=== PATIENT | female | born 1980 | race Caucasian/White ===

== ENCOUNTER 2019-05-24 09:38 | Outpatient (RCR) | payer SELFPAY | END 2019-06-06 00:01 | LOC: MPT 09:38 | PROVIDERS: Family Provider Family Medicine; Visit Provider Family Medicine | DX: M25.512 Pain in left shoulder (principal) | CPT/HCPCS: 97110 ×2; 97161; G0283 ==

== ENCOUNTER 2019-06-07 06:00 | Outpatient (RCR) | payer OTHER, SELFPAY | END 2019-07-07 23:59 | disposition home or self-care (01) | LOC: MPT 06:00 | PROVIDERS: Family Provider Family Medicine; PCP Family Medicine; Visit Provider Family Medicine | DX: M25.512 Pain in left shoulder (principal) | CPT/HCPCS: 97032; 97110; 97140 ==

== ENCOUNTER 2019-07-08 06:00 | Outpatient (RCR) | payer OTHER, SELFPAY | END 2019-08-05 23:59 | disposition home or self-care (01) | LOC: MPT 06:00 | PROVIDERS: Family Provider Family Medicine; PCP Family Medicine; Visit Provider Family Medicine | DX: M75.22 Bicipital tendinitis, left shoulder (principal); M54.2 Cervicalgia; M25.512 Pain in left shoulder; Z68.35 Body mass index [BMI] 35.0-35.9, adult | CPT/HCPCS: 97110; 97140 ==

== ENCOUNTER 2019-07-18 16:12 | Emergency (ER) | payer OTHER, SELFPAY ==
--- NOTE | 2019-07-18 16:38 | ECG_ITS ---
Measurements Intervals [place] Rate: 81 P: 51 ID: [id number] QRS: 75 QRSD: 85 T: 55 QT: 389 QTc: 452 SINUS RHYTHM Compared to ECG 04/11/2015 10:30:43 Sinus tachycardia no longer present Electronically Signed On 07-18-2019 20:01:37 [employer] by Renee Paul M.D. [email or web address]
[2019-07-18 16:49] VITALS: BP 108/72; PULSE 76; RESP 16; TEMP 36.6; O2SAT 100; BMI 36.8
--- NOTE | 2019-07-18 17:01 | ED_ITS ---
Entered by Javid Prater LPN, acting as scribe for Yoni Bhagat DO Jul 18, 2019 16:12 HPI - Chest Pain General: Chief Complaint: Chest Pain Stated Complaint: chest pain PFSH ED PFSH: Statuses (acute, chronic, etc) shown below reflect problem list status as previously entered and may not be historically accurate Social History Smoking and tobacco status: never smoked Female Reproductive History: Date of last menstrual period: 06/27/19 Course Vital Signs: Vital signs: Vital Signs Temperature 97.9 F 07/18/19 16:49 Pulse Rate 76 07/18/19 16:49 Respiratory Rate 16 07/18/19 16:49 Blood Pressure 108/72 07/18/19 16:49 Pulse Oximetry 100 07/18/19 16:49 Discharge Plan Discharge Prescriptions: No Action aripiprazole [Abilify] 2 mg tablet 2 mg PO QDAY Qty: 90 RF: 0 simvastatin 20 mg tablet 20 mg PO DAILY Qty: 30 RF: 0 escitalopram oxalate 20 mg tablet 20 mg PO DAILY Qty: 30 RF: 0 Coding Level of Care Code 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
--- NOTE | 2019-07-18 17:11 | ED_ITS ---
Entered by Trudy Nicholson, acting as scribe for Isa Cool MD Jul 18, 2019 16:12 HPI - Chest Pain General: Chief Complaint: Chest Pain Stated Complaint: chest pain Time Seen by Provider: 07/18/19 17:11 Source: patient and RN notes reviewed Mode of arrival: ambulatory Limitations: no limitations History of Present Illness: HPI narrative: 38 yo female presents to ED with complaints of chest pain. Pain is sharp at times comes and goes on its own nothing makes it better or worse. It is left-sided radiates to her neck.'s associated with shortness of breath occasionally. She is accompanied by her mother who also gives history. She states she has craved sweets and has been more fatigued since this pain started. She is seen by cardiology for SVT once a year and takes her metoprolol regularly. She is currently pain-free. She states that she has had pain lasting longer than 30 minutes that started at 2 PM today. Denies any cold or flu symptoms. MD complaint: chest pain Associated symptoms: Deny abdominal pain, dyspnea, fever(s), nausea or vomiting Review of Systems General: Reports: 10 or more systems reviewed and unremarkable except in HPI and below Const: Reports: change in weight and fatigue; Denies: fever or chills Eyes: Denies: change in vision ENMT: Denies: throat pain Card: Reports: chest pain Resp: Denies: shortness of breath GI: Denies: abdominal pain, nausea, vomiting or change in bowel habits : Denies: difficulty urinating Musc: Denies: muscle weakness Skin/Breast: Denies: rash Neuro: Denies: headache Psych: Denies: hopelessness or suicidal ideation Endo: Denies: excessive urination David/Lymph: Denies: easy bruising or easy bleeding All/Imm: Denies: hives PFSH ED PFSH: Statuses (acute, chronic, etc) shown below reflect problem list status as previously entered and may not be historically accurate Social History Smoking and tobacco status: never smoked Female Reproductive History: Date of last menstrual period: 06/27/19 Physical Exam Const: COMMON NORMALS: no apparent distress, average body habitus, oriented x3, no limitations, healthy appearing, alert and well nourished HENMT: COMMON NORMALS: normocephalic, external ears normal and external nose normal HEAD & SCALP: normocephalic NOSE: external nose normal EXTERNAL EAR: Yes external ears normal MOUTH: oral and palatal mucosa normal THROAT: posterior oropharynx normal Eye: COMMON NORMALS: PERRL, EOMs intact bilaterally, conjunctivae normal, no scleral icterus and normal visual lion by confrontation CONJUNCTIVA: Yes conjunctivae normal PUPIL: Yes PERRL Neck/C-Spine: COMMON NORMALS: full ROM, no lymphadenopathy, supple, no meningeal signs and no JVD CERVICAL SPINE: Yes cervical ROM normal Lymph: LYMPHATIC: no lymphadenopathy noted Chest: COMMONS NORMALS: inspection of chest normal Resp: COMMON NORMALS: normal respiratory effort, no retractions, no use of accessory muscles and clear to auscultation bilaterally AUSCULTATION: clear to auscultation bilaterally Cardio: COMMON NORMALS: no JVD, regular rate, regular rhythm, no gallops, no clicks, no murmurs and no rub RATE: regular rate RHYTHM: regular rhythm GI: COMMON NORMALS: normal to inspection, nondistended, normoactive bowel sounds, soft to palpation and non-tender AUSCULTATION: Yes normoactive bowel sounds PALPATION: Yes soft : COMMON NORMALS: Yes no CVA tenderness BLADDER/KIDNEY EXAM: Yes no CVA tenderness Back/Pelvis: COMMON NORMALS: no CVA tenderness Extremity: COMMON NORMALS: normal to inspection Neuro: COMMON NORMALS: oriented x3 SENSORIUM/ORIENTATION: Yes alert MENINGEAL SIGNS: Yes no meningeal signs SPEECH: speech normal Psych: COMMON NORMALS: mental status grossly normal, thought process normal, cooperative, affect normal, speech normal, activity/motor behavior normal, denies hallucinations, denies homicidal ideation and denies suicidal ideation SPEECH: Yes normal speech THOUGHT PROCESS: normal thought process Skin: COMMON NORMALS: no rashes or lesions noted GENERAL SKIN EXAM: no rashes or lesions noted Course Vital Signs: Vital signs: Vital Signs Temperature 97.9 F 07/18/19 16:49 Pulse Rate 76 07/18/19 16:49 Respiratory Rate 16 07/18/19 16:49 Blood Pressure 108/72 07/18/19 16:49 Pulse Oximetry 100 07/18/19 17:36 MDM - Chest Pain MDM Narrative: Medical decision making narrative: Troponin within normal limits. Patient's pain was described as sharp and with d-dimer being just outside the normal limits decision to do CTA was made. Incidental finding on CT information will be given to the patient to follow-up for repeat CT presumably in several months. Lab Data: Labs: Lab Results 07/18/19 07/18/19 07/18/19 Range/Units 17:30 17:30 17:30 WBC 7.9 (4.0-10.0) 10^3/ uL RBC 4.51 (4.1-5.3) 10^6/u L Hgb 12.1 (11.5-15.3) g/dL Hct 38.7 (37.0-47.0) % MCV 85.8 (81-99) fL MCH 26.8 L (28.0-34.0) pg MCHC 31.3 (30.0-36.0) g/dL RDW 13.0 (12.1-15.1) % Plt Count 235 (130-400) 10^3/c mm MPV 10.1 (7.4-10.4) fL Neut % (Auto) 51.2 % Lymph % (Auto) 37.6 % [place] % (Auto) 6.4 % Eos % (Auto) 3.8 % Baso % (Auto) 0.6 % Neut # (Auto) 4.1 (1.8-7.7) 10^3/u L Lymph # (Auto) 3.0 (0.8-4.8) 10^3/u L [place] # (Auto) 0.5 (0.2-0.9) 10^3/u L Eos # (Auto) 0.3 (0.0-0.8) 10^3/u L Baso # (Auto) 0.1 (0.0-0.1) 10^3/u L Nucleated RBC % (a uto) 0 % Nucleated RBCs # 0.0 /100WBC D-Dimer (0-0.59) ug/mIFE U Sodium 140 (136-145) mmol/L Potassium 3.9 (3.5-5.1) mmol/L Chloride 105 (98-107) mmol/L Carbon Dioxide 23 (22-29) mmol/L Anion Gap 15.9 (5-19) BUN 21 H (6-20) mg/dL Creatinine 1.1 H (0.5-0.9) mg/dL GFR Calculation 55.0 L (90-130) mL/min Glucose 101 (65-115) mg/dL Calcium 9.2 (8.5-10.5) mg/dL Total Bilirubin 0.2 (0.15-1.2) mg/dL AST 73 H (0-32) U/L ALT 194 H (0-33) U/L Alkaline Phosphata se 62 (35-105) IU/L Troponin T Baselin e 7 (0-10) ng/mL Troponin T 120 Min [place]ering (0-10) ng/mL Delta Troponin T (0-10) ABS# Total Protein 7.5 (6.6-8.7) g/dL Albumin 4.3 (3.5-5.2) g/dL Globulin 3.2 (1.3-4.6) g/dL TSH 1.49 (0.27-4.20) uIU/ mL 07/18/19 07/18/19 Range/Units 17:30 18:52 WBC (4.0-10.0) 10^3/ uL RBC (4.1-5.3) 10^6/u L Hgb (11.5-15.3) g/dL Hct (37.0-47.0) % MCV (81-99) fL MCH (28.0-34.0) pg MCHC (30.0-36.0) g/dL RDW (12.1-15.1) % Plt Count (130-400) 10^3/c mm MPV (7.4-10.4) fL Neut % (Auto) % Lymph % (Auto) % [place] % (Auto) % Eos % (Auto) % Baso % (Auto) % Neut # (Auto) (1.8-7.7) 10^3/u L Lymph # (Auto) (0.8-4.8) 10^3/u L [place] # (Auto) (0.2-0.9) 10^3/u L Eos # (Auto) (0.0-0.8) 10^3/u L Baso # (Auto) (0.0-0.1) 10^3/u L Nucleated RBC % (a uto) % Nucleated RBCs # /100WBC D-Dimer 0.63 H (0-0.59) ug/mIFE U Sodium (136-145) mmol/L Potassium (3.5-5.1) mmol/L Chloride (98-107) mmol/L Carbon Dioxide (22-29) mmol/L Anion Gap (5-19) BUN (6-20) mg/dL Creatinine (0.5-0.9) mg/dL GFR Calculation (90-130) mL/min Glucose (65-115) mg/dL Calcium (8.5-10.5) mg/dL Total Bilirubin (0.15-1.2) mg/dL AST (0-32) U/L ALT (0-33) U/L Alkaline Phosphata se (35-105) IU/L Troponin T Baselin e (0-10) ng/mL Troponin T 120 Min [place] 6.84 (0-10) ng/mL Delta Troponin T -0.16 L (0-10) ABS# Total Protein (6.6-8.7) g/dL Albumin (3.5-5.2) g/dL Globulin (1.3-4.6) g/dL TSH (0.27-4.20) uIU/ mL Imaging Data^: CXR: Attestation: I personally reviewed and interpreted this imaging study as follows: My impression: Normal chest CTA Chest: Radiologist's impression: [place] [address] CT Scan Report Signed Patient: Suraj Granados #: [id number] : 1980Acct#:[id number] Age/Sex: 38 / FADM Date: 07/18/19 Loc: ERRoom/Bed: Attending Dr: Ordering Provider/Ordering MD: Isa Cool MD Date of Service: 07/18/19 Procedure(s): CT angio chest PE protcl [id number] Accession Number(s): [id number] Report Number: [id number] PROCEDURE INFORMATION: Exam: CT Angiography Chest With Contrast Exam date and time: 07/18/2019 6:30 PM Age: 38 years old Clinical indication: Chest pain and sternal or substernal pain; Left-sided chest pain; Patient HX: C/O L sided and substernal pain - elev d-dimer and HX of svt; Additional info: Sharp cp TECHNIQUE: Imaging protocol: Computed tomographic angiography of the chest with intravenous contrast. 3D rendering: MIP and/or 3D reconstructed images were created by the technologist. Total DLP: 551.84 mGy-cm Radiation optimization: All CT scans at this facility use at least one of these dose optimization techniques: automated exposure control; mA and/or kV adjustment per patient size (includes targeted exams where dose is matched to clinical indication); or iterative reconstruction. Contrast material: OMNI 350; Contrast volume: 95 ml; Contrast route: 18G; COMPARISON: CR XR chest 1V portable [id number] 07/18/2019 5:40 PM FINDINGS: Pulmonary arteries: Normal. No pulmonary emboli. Aorta: Unremarkable. No aortic aneurysm. No aortic dissection. Lungs: Minimal dependent atelectasis. The lungs are otherwise clear. Pleural space: Unremarkable. No pneumothorax. No pleural effusion. Heart: 2.9 cm oval fluid density cyst or pericardial fluid collection in the AP window region. Lymph nodes: 1.4 cm pretracheal lymph node. Bones/joints: Unremarkable. No acute fracture. Soft tissues: Unremarkable. CT/CT angio chest PE protcl [id number] IMPRESSION: 1. No pulmonary embolus. 2. 2.9 cm fluid density cystic structure in the AP window. This could represent a bronchogenic cyst or loculated pericardial fluid. CT follow-up to confirm stability recommended. 3. 1.4 cm pretracheal lymph node is most likely reactive. Radiation Dose CTDIVOL = (mGy): DLP = 551.84 (mGy-cm) Dictated By:Rudi Rebollar Signed By:Rudi RebollarSiarmando Date/Time:07/18/191918 DD/ EKG Data^: EKG 1: Attestation: I personally reviewed and interpreted this EKG as follows: EKG interpretation date: 07/18/19 EKG interpretation time: 17:23 Prior EKG tracings: available for review Interpretation: Sinus rhythm rate [address] elevation normal NC interval. Discharge Plan Discharge Patient Disposition: Home, Self-Care Clinical Impression: Chest pain Qualifiers: Chest pain type: unspecified Qualified Code(s): R07.9 - Chest pain, unspecified Condition: Stable Prescriptions: No Action simvastatin 20 mg tablet 20 mg PO DAILY Qty: 30 RF: 0 escitalopram oxalate 20 mg tablet 20 mg PO DAILY Qty: 30 RF: 0 cranberry 400 mg Capsule 400 mg PO DAILY RF: 0 Topamax 100 mg Tablet 150 mg PO BID RF: 0 B Complex 100 0.4 mg Tablet 1 tab PO DAILY RF: 0 Fish Oil 1,000 mg (120 mg-180 mg) Capsule 1 cap PO DAILY RF: 0 Vitamin D3 4,000 unit Capsule 5,000 unit PO DAILY RF: 0 metoprolol succinate 25 mg Capsule,Sprinkle,Er 24hr 12.5 mg PO BID RF: 0 Abilify 2 mg tablet 2 mg PO DAILY RF: 0 Referrals: Kristen Muir DO [Primary Care Provider] - 1-3 days Patient Instructions: Chest Pain (ED) Activity Restrictions/Additional Instructions: There is no evidence of a life-threatening condition from your visit today. Cardiac enzyme was normal. CTA of chest did not reveal a pulmonary embolus but there was incidental finding which simply means you need to follow-up with your primary care doctor and have a repeat CT scan. CT/CT angio chest PE protcl [id number] IMPRESSION: 1. No pulmonary embolus. 2. 2.9 cm fluid density cystic structure in the AP window. This could represent a bronchogenic cyst or loculated pericardial fluid. CT follow-up to confirm stability recommended. 3. 1.4 cm pretracheal lymph node is most likely reactive. 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
--- NOTE | 2019-07-18 17:12 | XRR_ITS ---
PROCEDURE INFORMATION: Exam: XR Chest, 1 View Exam date and time: 07/18/2019 5:49 PM Age: 38 years old Clinical indication: Chest pain; Type not specified; Additional info: Cp TECHNIQUE: Imaging protocol: XR of the chest Views: 1 view. COMPARISON: CR Chest 1 [place] [id number] 04/11/2015 10:42 AM FINDINGS: Lungs: Unremarkable. No consolidation. Pleural space: Unremarkable. No pleural effusion. No pneumothorax. Heart/Mediastinum: Unremarkable. No cardiomegaly. Bones/joints: Unremarkable. XR/XR chest 1V portable [id number] IMPRESSION: No acute findings.
[2019-07-18 17:36] VITALS: O2SAT 100
[2019-07-18 17:58] LABS: Basophils # 0.1 10^3/uL (0.0-0.1); Basophils % 0.6 %; Eosinophils # 0.3 10^3/uL (0.0-0.8); Eosinophils % 3.8 %; Hematocrit 38.7 % (37.0-47.0); Hemoglobin 12.1 g/dL (11.5-15.3); Lymphocytes % 37.6 %; Mean Corpuscular HGB Conc 31.3 g/dL (30.0-36.0); Mean Corpuscular Hemoglobin 26.8 pg (28.0-34.0); Mean Corpuscular Volume 85.8 fL (81-99); Mean Platelet Volume 10.1 fL (7.4-10.4); Monocytes # 0.5 10^3/uL (0.2-0.9); Monocytes % 6.4 %; Neutrophils # 4.1 10^3/uL (1.8-7.7); Neutrophils % 51.2 %; Nucleated Red Blood Cells % 0 %; Platelet Count 235 10^3/cmm (130-400); Red Blood Count 4.51 10^6/uL (4.1-5.3); White Blood Count 7.9 10^3/uL (4.0-10.0)
[2019-07-18 18:04] LABS: D Dimer 0.63 ug/mIFEU (0-0.59)
--- NOTE | 2019-07-18 18:13 | CTR_ITS ---
PROCEDURE INFORMATION: Exam: CT Angiography Chest With Contrast Exam date and time: 07/18/2019 6:30 PM Age: 38 years old Clinical indication: Chest pain and sternal or substernal pain; Left-sided chest pain; Patient HX: C/O L sided and substernal pain - elev d-dimer and HX of svt; Additional info: Sharp cp TECHNIQUE: Imaging protocol: Computed tomographic angiography of the chest with intravenous contrast. 3D rendering: MIP and/or 3D reconstructed images were created by the technologist. Total DLP: 551.84 mGy-cm Radiation optimization: All CT scans at this facility use at least one of these dose optimization techniques: automated exposure control; mA and/or kV adjustment per patient size (includes targeted exams where dose is matched to clinical indication); or iterative reconstruction. Contrast material: OMNI 350; Contrast volume: 95 ml; Contrast route: 18G; COMPARISON: CR XR chest 1V portable [id number] 07/18/2019 5:40 PM FINDINGS: Pulmonary arteries: Normal. No pulmonary emboli. Aorta: Unremarkable. No aortic aneurysm. No aortic dissection. Lungs: Minimal dependent atelectasis. The lungs are otherwise clear. Pleural space: Unremarkable. No pneumothorax. No pleural effusion. Heart: 2.9 cm oval fluid density cyst or pericardial fluid collection in the AP window region. Lymph nodes: 1.4 cm pretracheal lymph node. Bones/joints: Unremarkable. No acute fracture. Soft tissues: Unremarkable. CT/CT angio chest PE protcl [id number] IMPRESSION: 1. No pulmonary embolus. 2. 2.9 cm fluid density cystic structure in the AP window. This could represent a bronchogenic cyst or loculated pericardial fluid. CT follow-up to confirm stability recommended. 3. 1.4 cm pretracheal lymph node is most likely reactive. Radiation Dose CTDIVOL = (mGy): DLP = 551.84 (mGy-cm)
[2019-07-18 18:22] LABS: Alanine Aminotransferase 194 U/L (0-33); Albumin Level 4.3 g/dL (3.5-5.2); Alkaline Phosphatase 62 IU/L (35-105); Anion Gap 15.9 (5-19); Aspartate Amino Transferase 73 U/L (0-32); Blood Urea Nitrogen 21 mg/dL (6-20); Calcium 9.2 mg/dL (8.5-10.5); Carbon Dioxide 23 mmol/L (22-29); Chloride 105 mmol/L (98-107); Globulin 3.2 g/dL (1.3-4.6); Glucose 101 mg/dL (65-115); Potassium 3.9 mmol/L (3.5-5.1); Sodium 140 mmol/L (136-145); Thyroid Stimulating Hormone 1.49 uIU/mL (0.27-4.20); Total Bilirubin 0.2 mg/dL (0.15-1.2); Total Protein 7.5 g/dL (6.6-8.7)
[2019-07-18] MEDS: iohexol 350 mg/mL 100 mL Btl IV (18:38)
[2019-07-18 19:34] LABS: Troponin 5 2HR 6.84 ng/mL (0-10)
[2019-07-18 19:35] LABS: Troponin 5 2HR Delta -0.16 ABS# (0-10)
[2019-07-18 20:01] VITALS: BP 99/72; PULSE 73; RESP 16; O2SAT 100
== END 2019-07-18 20:08 | disposition home or self-care (01) ==
PROVIDERS: Family Medicine; Emergency Provider Emergency Medicine; Family Provider Family Medicine; PCP Family Medicine
DX: R07.9 Chest pain, unspecified (principal); I47.1 Supraventricular tachycardia
CPT/HCPCS: 36415; 71045; 71275; 80053; 84443; 84484; 85025; 85378; 93005; 99283; Q9967

== ENCOUNTER → 2019-07-20 14:14 | Outpatient (BNVA) | payer OTHER, SELFPAY | PROVIDERS: Family Provider Family Medicine; PCP Family Medicine; Visit Provider Nurse Practitioner Family | DX: R06.02 Shortness of breath (principal); R07.9 Chest pain, unspecified | CPT/HCPCS: 83880 ==

== ENCOUNTER 2019-08-01 09:44 | Outpatient (CLI) | payer OTHER, SELFPAY ==
--- NOTE | 2019-08-01 10:15 | USCV_ITS ---
GranadosCherri Age: 38 Gender: F : 1980 Exam Date: 08/01/2019 10:04 Ordering Phys: Nery Jimenez Technologist: Carmencita Gillis Exam Location: [facility] [place] Indication: SOB BP: 109 / 67 HR: 69 Rhythm: Sinus Technical Quality: Fair MEASUREMENTS (Male / Female) Normal Values 2D ECHO LV Diastolic Diameter PLAX 4.1 cm 4.2 - 5.9 / 3.9 - 5.3 cm LV Systolic Diameter PLAX 2.7 cm LV Chamber Size 4.1 cm IVS Diastolic Thickness 0.9 cm 0.6 - 1.0 / 0.6 - 0.9 cm IVS Systolic Thickness 1.3 cm LVPW Diastolic Thickness 0.9 cm 0.6 - 1.0 / 0.6 - 0.9 cm LVPW Systolic Thickness 1.1 cm RV Chamber Size 2.9 cm LVOT Diameter 2.0 cm LV Ejection Fraction 2D Teich 61.7 % LV Ejection Fraction MOD 2C 68.2 % LV Ejection Fraction 2C AL 67.9 % LA Diameter 3.1 cm LA Width 3.5 cm LA Height 4.6 cm RA Width 2.7 cm RA Height 3.8 cm M-MODE LV Diastolic Diameter MM 4.2 cm 4.2 - 5.9 / 3.9 - 5.3 cm LV Systolic Diameter MM 3.0 cm LV Ejection Fraction MM Teich 53.4 % IVS Diastolic Thickness MM 1.0 cm 0.6 - 1.0 / 0.6 - 0.9 cm IVS Systolic Thickness MM 0.9 cm LVPW Diastolic Thickness MM 1.0 cm 0.6 - 1.0 / 0.6 - 0.9 cm LVPW Systolic Thickness MM 1.2 cm RV Diastolic Diameter MM 1.6 cm Aortic Annulus Diameter 2.5 cm LA Ao Ratio MM 1.2 MV E Point Septal Separation 0.2 cm DOPPLER AV Peak Velocity 125.0 cm/s LVOT Peak Velocity 97.0 cm/s AV Area Cont Eq vti 2.4 cm squared AV Area Cont Eq pk 2.4 cm squared MV Area PHT 3.1 cm squared Mitral E to A Ratio 1.1 MV E' Velocity 12.0 cm/s Mitral E to MV E' Ratio 8.0 Mitral E to LV E' Lateral Ratio 7.3 Mitral E to LV E' Septal Ratio 8.7 TR Peak Velocity 245.1 cm/s TR Peak Gradient 24.0 mmHg TR Mean Velocity 185.7 cm/s TR Mean Gradient 14.7 mmHg TR Velocity Time Integral 75.8 cm TV Peak E Velocity 72.0 cm/s Right Atrial Pressure 3.0 mmHg Pulmonary Artery Systolic Pressu 27.0 mmHg PV Peak Velocity 81.0 cm/s FINDINGS Left Ventricle Normal left ventricular size, systolic function and wall thickness, with no regional wall motion abnormalities. Normal left ventricular wall thickness. Normal diastolic filling pattern. Left ventricular ejection fraction is estimated at 60 %. Right Ventricle Normal right ventricular size and systolic function. Normal right ventricular systolic pressure. Right Atrium The right atrium is normal in size. Left Atrium The left atrium is normal in size. Mitral Valve Structurally normal mitral valve. Mild mitral valve regurgitation. Aortic Valve Structurally normal aortic valve without significant sclerosis or stenosis. There is no aortic regurgitation. Tricuspid Valve Structurally normal tricuspid valve. Mild tricuspid valve regurgitation. Pulmonic Valve Structurally normal pulmonic valve without significant stenosis. There is no pulmonic regurgitation. Pericardium Normal pericardium without effusion. Aorta Normal ascending aorta dimension. CONCLUSIONS Normal left ventricular size, systolic function and wall thickness, with no regional wall motion abnormalities. Normal left ventricular wall thickness. Normal diastolic filling pattern. Left ventricular ejection fraction is estimated at 60 %. Structurally normal mitral valve. Mild mitral valve regurgitation. Compared to the previous study done 05/10/2015, the only change is the mild mitral regurgitation. Dr. Jay Jay Howe MD (Electronically Signed) Final Date: 01 August 2019 11:48 S
== END 2019-08-01 09:45 | disposition home or self-care (01) ==
LOC: US 09:46
PROVIDERS: Family Provider Family Medicine; PCP Family Medicine; Visit Provider Nurse Practitioner Family
DX: I08.1 Rheumatic disorders of both mitral and tricuspid valves (principal); R06.02 Shortness of breath
CPT/HCPCS: 93306

== ENCOUNTER 2019-08-06 06:00 | Outpatient (RCR) | payer OTHER, SELFPAY | END 2019-09-05 23:59 | disposition home or self-care (01) | LOC: MPT 06:00 | PROVIDERS: Family Provider Family Medicine; PCP Family Medicine; Visit Provider Family Medicine | DX: M25.512 Pain in left shoulder (principal) | CPT/HCPCS: 97110; 97140 ==

== ENCOUNTER → 2019-08-29 09:01 | Outpatient (BNVA) | payer OTHER, SELFPAY | PROVIDERS: Family Provider Family Medicine; PCP Family Medicine; Visit Provider Specialist | DX: G43.909 Migraine, unspecified, not intractable, without status migrainosus (principal); F44.5 Conversion disorder with seizures or convulsions | CPT/HCPCS: 99213 ==

== ENCOUNTER 2019-09-06 06:00 | Outpatient (RCR) | payer SELFPAY | END 2019-10-05 23:59 | disposition home or self-care (01) | LOC: MPT 06:00 | PROVIDERS: Family Provider Family Medicine; PCP Family Medicine; Visit Provider Family Medicine | DX: M25.512 Pain in left shoulder (principal) | CPT/HCPCS: 97110; 97140 ==

== ENCOUNTER → 2019-09-28 14:48 | Outpatient (BNVA) | payer SELFPAY | PROVIDERS: Family Provider Family Medicine; PCP Family Medicine; Visit Provider Family Medicine | DX: R68.89 Other general symptoms and signs (principal); J30.2 Other seasonal allergic rhinitis; R50.9 Fever, unspecified; J06.9 Acute upper respiratory infection, unspecified | CPT/HCPCS: 87400; 87635 ==

== ENCOUNTER 2019-10-20 17:41 | Emergency (ER) | payer OTHER, SELFPAY ==
[2019-10-20 17:47] VITALS: BP 113/78; PULSE 92; RESP 18; TEMP 36.6; O2SAT 100; BMI 37.8
--- NOTE | 2019-10-20 18:55 | XRR_ITS ---
PROCEDURE INFORMATION: Exam: XR Lumbosacral Spine, 2 or 3 Views Exam date and time: 10/20/2019 7:11 PM Age: 39 years old Clinical indication: Injury or trauma; Fall; Initial encounter; Blunt trauma (contusions or hematomas); Additional info: Pain/injury TECHNIQUE: Imaging protocol: XR of the lumbosacral spine, 2 or 3 views. COMPARISON: MRI Lumbar Spine w/o [id number] 01/13/2018 7:06 PM FINDINGS: Vertebrae: Normal. No acute fracture. Normal alignment. Soft tissues: Normal. XR/XR lumbar spine 2-3V* [id number] IMPRESSION: No acute findings.
--- NOTE | 2019-10-20 18:55 | XRR_ITS ---
PROCEDURE INFORMATION: Exam: XR Left Shoulder Exam date and time: 10/20/2019 7:11 PM Age: 39 years old Clinical indication: Pain and injury or trauma; Fall; Initial encounter; Blunt trauma (contusions or hematomas; Shoulder; Left; Additional info: Pain/injury TECHNIQUE: Imaging protocol: XR Left shoulder. Views: 2 or more views. COMPARISON: CR Shoulder 2+ views LEFT* [id number] 05/11/2019 10:06 AM FINDINGS: Bones/joints: Normal. Soft tissues: Normal. XR/XR shoulder LT min 2V* [id number] IMPRESSION: No acute findings.
--- NOTE | 2019-10-20 18:55 | CTR_ITS ---
PROCEDURE INFORMATION: Exam: CT Cervical Spine Without Contrast Exam date and time: 10/20/2019 7:09 PM Age: 39 years old Clinical indication: Injury or trauma; Initial encounter; Blunt trauma; Patient HX: Slipped on a wet ramp falling onto back; Additional info: Pain TECHNIQUE: Imaging protocol: Computed tomography images of the cervical spine without contrast. Radiation optimization: All CT scans at this facility use at least one of these dose optimization techniques: automated exposure control; mA and/or kV adjustment per patient size (includes targeted exams where dose is matched to clinical indication); or iterative reconstruction. COMPARISON: CTA Head/Neck [id number] 09/27/2014 1:49 PM RADIATION DOSE METRICS: Total DLP: 607.26 mGy-cm FINDINGS: Vertebrae: No acute fracture. Normal alignment. Discs/Spinal canal/Neural foramina: No significant disc protrusion. No severe spinal canal stenosis. No significant neural foraminal narrowing. Soft tissues: Unremarkable. Lungs: Lung apices are normal. CT/CT cervical spin wo con* [id number] IMPRESSION: No acute findings. Radiation Dose CTDIVOL = (mGy): DLP = 607.26 (mGy-cm)
--- NOTE | 2019-10-20 18:55 | CTR_ITS ---
PROCEDURE INFORMATION: Exam: CT Thoracic Spine Without Contrast Exam date and time: 10/20/2019 7:09 PM Age: 39 years old Clinical indication: Injury or trauma; Initial encounter; Blunt trauma (contusions or hematomas); Patient HX: Slipped on a wet ramp falling onto back; Additional info: Pain/injury TECHNIQUE: Imaging protocol: Computed tomography images of the thoracic spine without contrast. Radiation optimization: All CT scans at this facility use at least one of these dose optimization techniques: automated exposure control; mA and/or kV adjustment per patient size (includes targeted exams where dose is matched to clinical indication); or iterative reconstruction. COMPARISON: No relevant prior studies available. RADIATION DOSE METRICS: Total DLP: 2109.87 mGy-cm FINDINGS: Vertebrae: No acute fracture. Normal alignment. Discs/Spinal canal/Neural foramina: No significant disc protrusion. No severe spinal canal stenosis. No significant neural foraminal narrowing. Soft tissues: Unremarkable. Gallbladder and bile ducts: Incidental note is status post cholecystectomy. Other findings: Respiratory motion artifact. CT/CT thoracic spin wo con* [id number] IMPRESSION: Unremarkable CT Spine. Radiation Dose CTDIVOL = (mGy): DLP = 2109.87 (mGy-cm)
--- NOTE | 2019-10-20 19:44 | ED_ITS ---
HPI - Back Pain/Injury General: Chief Complaint: Back Pain/Injury Stated Complaint: fall Time Seen by Provider: 10/20/19 18:53 History of Present Illness: HPI Narrative: Cherri is a 39-year-old female who slipped and fell landing on her bottom and then fell backwards landing on her back and neck. She slipped on wet pavement. This occurred just prior to arrival here today. She denies hitting her head or having loss of consciousness. Patient states she feels primarily sore in her back. She describes her pain intensity is moderate. She also feels like she may have strained her left shoulder. She denies any other injuries or problems. She has no radiation of her pain. She has any numbness or weakness of any of her extremities. Moving around makes her symptoms worse but resting makes them better. Patient has not tried anything at home for this prior to arrival. Associated symptoms: Deny abdominal pain, chills, difficulty walking, dysuria, fatigue, fever(s), hematuria, nausea, syncope, urinary urgency or vomiting Review of Systems Const: Denies: fever(s), chills, body aches, fatigue, malaise, night sweats or diaphoresis Eyes: Denies: change in vision, blurry vision or blind spots ENMT: Denies: throat pain, odynophagia, hoarseness, ear or mastoid pain, ear discharge, change in hearing or nasal discharge Card: Denies: chest pain, palpitations, irregular heart rhythm, lightheadedness, syncope, pre-syncope, dyspnea on exertion or orthopnea Resp: Denies: dyspnea, productive cough, non-productive cough, wheezing, hemoptysis or chest congestion GI: Denies: abdominal pain, nausea, vomiting, hematemesis, coffee ground emesis, heartburn, diarrhea, constipation, GI cramping, hematochezia or melena : Denies: flank pain, dysuria, urinary frequency, urinary urgency, oliguria, urinary incontinence or hematuria Musc: Reports: neck pain, back pain and extremity pain; Denies: extremity swelling, joint pain, joint swelling, joint redness, joint warmth or joint stiffness Skin/Breast: Denies: rash, pruritus, erythema, skin tenderness or jaundice Neuro: Denies: headache(s), numbness in extremities, weakness in extremities, sensory changes, lack of coordination, difficulty walking, dizziness, vertigo, confusion or Slurred speech present Endo: Denies: polyuria, polydipsia, tired all the time, cold intolerance, excessive sweating, flushing, hot flashes or heat intolerance David/Lymph: Denies: easy bruising, easy bleeding, petechiae, purpura or en larged lymph nodes All/Imm: Denies: urticaria, throat swelling, tongue swelling, facial swelling or acute wheezing PFSH ED PFSH: Medical History Attention deficit disorder DDD (degenerative disc disease), lumbar Depression with anxiety Fibromyalgia History of petit-mal seizures Hx of supraventricular tachycardia Hyperlipidemia Paroxysmal supraventricular tachycardia Surgical History Hx laparoscopic cholecystectomy Hx of ovarian cystectomy Hx of shoulder surgery Family History Father CAD (coronary artery disease) Hyperlipidemia Grandfather CAD (coronary artery disease) Grandmother CAD (coronary artery disease) Dementia Diabetes Mother Chronic kidney disease (CKD) Dementia Hypertension Stroke Denies family history of Clotting disorder Psychiatric illness Suicide Anesthesia complication Bleeding disorder Family history of premature coronary artery disease Lung disease Cancer Social History Smoking and tobacco status: never smoked Alcohol intake: never History of recent travel: No Female Reproductive History: Date of last menstrual period: 06/27/19 Physical Exam Const: COMMON NORMALS: no acute distress, patient oriented x3, no limitations, healthy appearing and well nourished EXAM LIMITATIONS: no altered mental status GENERAL APPEARANCE: cooperative, well kempt and well developed HENMT: COMMON NORMALS: normocephalic, atraumatic, hearing grossly normal bilaterally, external ears normal, EAC's normal, Normal external nose present and moist oral mucous membranes HEAD & SCALP: normal to inspection, normocephalic and atraumatic FACE & SINUS: normal facial exam and face symmetric NOSE: Normal external nose present and Normal nares present EXTERNAL EAR: Yes external ears normal EXTERNAL AUDITORY CANAL: EAC's normal MOUTH: Normal oral and palatal mucosa present, lip normal and tongue normal Eye: COMMON NORMALS: Equal, round and reactive pupils present, EOMs intact bilaterally, conjunctivae normal and no scleral icterus GENERAL EYE: appearance normal, both eyes and all related structures and normal light reflex ALIGNMENT: Yes alignment normal PERIORBITAL: periorbital findings normal EYELID: eyelids normal CONJUNCTIVA: Yes conjunctivae normal SCLERA: sclerae normal PUPIL: Yes Equal, round and reactive pupils present DIRECT OPHTHALMOSCOPY: Yes normal light reflex Neck/C-Spine: COMMON NORMALS: full ROM, no lymphadenopathy, supple, no meningeal signs and no JVD GENERAL: Yes normal visual inspection and Yes trachea midline CERVICAL SPINE: Yes cervical ROM normal Chest: COMMONS NORMALS: normal inspection of the chest and normal palpation of entire chest wall Resp: COMMON NORMALS: normal respiratory effort, No retractions, No use of accessory muscles and clear to auscultation bilaterally EFFORT & INSPECTION: Yes able to speak in complete sentences AUSCULTATION: clear to auscultation bilaterally, no crackles, no rales, no rhonchi and no wheezes Cardio: COMMON NORMALS: no JVD, regular rate, regular rhythm, S1 normal heart sound present, S2 normal heart sound present, No gallops present (Cardio), No clicks present (Cardio), No murmurs present (Cardio) and No rub (Cardio) RATE: regular rate RHYTHM: regular rhythm HEART SOUNDS: S1 normal heart sound present, S2 normal heart sound present, no click, no gallops, no murmurs and no rubs GI: COMMON NORMALS: Soft to palpation, non-tender, No hepatosplenomegaly present and no masses PALPATION: Yes Soft to palpation, No Tenderness to palpation present (GI), No Guarding due to palpation present (GI), No Rigid due to palpation, Yes No hepatosplenomegaly present, No Hernia present, No Palpable mass present and No Pulsatile mass present : COMMON NORMALS: Yes no CVA tenderness BLADDER/KIDNEY EXAM: Yes no CVA tenderness EXTERNAL FEMALE EXAM: No Hernia present Back/Pelvis: COMMON NORMALS: no CVA tenderness, thoracic and lumbar spine normal to inspection, no thoracic nor lumbar tenderness and thoraco-lumbar ROM normal Extremity: COMMON NORMALS: full ROM, capillary refill normal, no joint enlargement, no clubbing, cyanosis or edema and no calf tenderness NARRATIVE EXTREMITY EXAM: Range of motion mildly limited in the left shoulder. This was secondary to pain. Mild tenderness to palpation over the spine but no focal tenderness. Neuro: COMMON NORMALS: patient oriented x3, CN's II-XII intact bilaterally, mo ves all extremities, no focal motor deficits and no sensory deficits noted MENINGEAL SIGNS: Yes no meningeal signs SPEECH: speech normal Psych: COMMON NORMALS: mental status grossly normal, Normal thought process present, cooperative, normal affect, speech normal and activity/motor behavior normal APPEARANCE: Yes well kempt SPEECH: Yes normal speech THOUGHT PROCESS: Normal thought process present Skin: COMMON NORMALS: no rashes or lesions noted, turgor normal, no jaundice, no petechiae and no mottling GENERAL SKIN EXAM: no rashes or lesions noted and turgor normal Course Vital Signs: Vital signs: Vital Signs Temperature 97.9 F 10/20/19 17:47 Pulse Rate 99 10/20/19 20:01 Respiratory Rate 18 10/20/19 20:01 Blood Pressure 122/80 10/20/19 20:01 Pulse Oximetry 99 10/20/19 20:01 MDM - Back Pain/Injury MDM Narrative: Medical decision making narrative: Cherri is a nice 39-year-old female who comes in complaining of back pain from falling on her back and left shoulder pain. CT of the C-spine and T-spine are negative for acute fractures. Her pain in these areas is diffusely tender without any focal spinous process tenderness. The same is true for lumbar spine and the lumbar spine appears negative to me. Left shoulder appears normal as well. Course it is possible she may have torn something in the shoulder. She agrees to follow- up with orthopedics if her pain persists in this area. She otherwise denies any other injuries and has no complaints. I did review with her personally my discharge instructions and she denies having any questions or concerns. Imaging Data^: CT Thoracic Spine: Radiologist's impression: [address] [place] [address] CT Scan Report Signed Patient: Cherri Granados Unit #: [id number] : 1980 ct#:[id number] Age/Sex: 39 / F ADM Date: 10/20/19 Loc: ER Room/Bed: Attending Dr: Ordering Provider/Ordering MD: Yoko Dunn DO Date of Service: 10/20/19 Procedure(s): CT thoracic spin wo con* [id number] Accession Number(s): [id number] Report Number: [id number] PROCEDURE INFORMATION: Exam: CT Thoracic Spine Without Contrast Exam date and time: 10/20/2019 7:09 PM Age: 39 years old Clinical indication: Injury or trauma; Initial encounter; Blunt trauma (contusions or hematomas); Patient HX: Slipped on a wet ramp falling onto back; Additional info: Pain/injury TECHNIQUE: Imaging protocol: Computed tomography images of the thoracic spine without contrast. Radiation optimization: All CT scans at this facility use at least one of these dose optimization techniques: automated exposure control; mA and/or kV adjustment per patient size (includes targeted exams where dose is matched to clinical indication); or iterative reconstruction. COMPARISON: No relevant prior studies available. RADIATION DOSE METRICS: Total DLP: 2109.87 mGy-cm FINDINGS: Vertebrae: No acute fracture. Normal alignment. Discs/Spinal canal/Neural foramina: No significant disc protrusion. No severe spinal canal stenosis. No significant neural foraminal narrowing. Soft tissues: Unremarkable. Gallbladder and bile ducts: Incidental note is status post cholecystectomy. Other findings: Respiratory motion artifact. CT/CT thoracic spin wo con* [id number] IMPRESSION: Unremarkable CT Spine. Radiation Dose CTDIVOL = (mGy): DLP = 2109.87 (mGy-cm) Dictated By: Zhang Torrez Signed By: Zhang Torrez Signed Date/Time: 10/20/191929 DD/ 28 CT Cervical Spine: Radiologist's impression: [address] [address] [address] Scan Report Signed Patient: Cherri Granados Unit #: [id number] : 1980 Age/Sex: 39 / F ADM Date: 10/20/19 Loc: ER Room/Bed: Attending Dr: Ordering Provider/Ordering MD: Yoko Dunn DO Date of Service: 10/20/19 Procedure(s): CT cervical spin wo con* [id number] Accession Number(s): [id number] Report Number: [id number] PROCEDURE INFORMATION: Exam: CT Cervical Spine Without Contrast Exam date and time: 10/20/2019 7:09 PM Age: 39 years old Clinical indication: Injury or trauma; Initial encounter; Blunt trauma; Patient HX: Slipped on a wet ramp falling onto back; Additional info: Pain TECHNIQUE: Imaging protocol: Computed tomography images of the cervical spine without contrast. Radiation optimization: All CT scans at this facility use at least one of these dose optimization techniques: automated exposure control; mA and/or kV adjustment per patient size (includes targeted exams where dose is matched to clinical indication); or iterative reconstruction. COMPARISON: CTA Head/Neck [id number] 09/27/2014 1:49 PM RADIATION DOSE METRICS: Total DLP: 607.26 mGy-cm FINDINGS: Vertebrae: No acute fracture. Normal alignment. Discs/Spinal canal/Neural foramina: No significant disc protrusion. No severe spinal canal stenosis. No significant neural foraminal narrowing. Soft tissues: Unremarkable. Lungs: Lung apices are normal. CT/CT cervical spin wo con* [id number] IMPRESSION: No acute findings. Radiation Dose CTDIVOL = (mGy): DLP = 607.26 (mGy-cm) Dictated By: Zhang Torrez Signed By: Zhang Torrez Signed Date/Time: 10/20/191921 DD/ 19 Xray Ortho: My impression: Lumbar spine -no acute fractures or dislocations Left shoulder -no acute fractures or dislocations Discharge Plan Discharge Patient Disposition: Home, Self-Care Clinical Impression: Contusion Qualifiers: Encounter type: initial encounter Contusion area: lower back Qualified Code(s): S30.0XXA - Contusion of lower back and pelvis, initial encounter Left shoulder strain Qualifiers: Encounter type: initial encounter Qualified Code(s): S46.912A - Strain of unspecified muscle, fascia and tendon at shoulder and upper arm level, left arm, initial encounter Condition: Stable Prescriptions: No Action omeprazole 20 mg capsule,delayed release(DR/EC) 20 mg PO DAILY RF: 0 montelukast [Singulair] 10 mg tablet 10 mg PO DAILY Qty: 30 RF: 0 Abilify 2 mg tablet 2 mg PO DAILY Qty: 30 RF: 0 escitalopram oxalate 20 mg tablet 20 mg PO DAILY Qty: 30 RF: 0 simvastatin 20 mg tablet 20 mg PO DAILY Qty: 30 RF: 0 cranberry 400 mg Capsule 400 mg PO DAILY RF: 0 Topamax 100 mg Tablet 150 mg PO BID RF: 0 B Complex 100 0.4 mg Tablet 1 tab PO DAILY RF: 0 Fish Oil 1,000 mg (120 mg-180 mg) Capsule 1 cap PO DAILY RF: 0 Vitamin D3 4,000 unit Capsule 5,000 unit PO DAILY RF: 0 metoprolol succinate 25 mg Capsule,Sprinkle,Er 24hr 12.5 mg PO BID RF: 0 Discharge Orders: Discharge Order (Routine); Ordered 10/20/19 Ordered By: Yoko Dunn Referrals: Nanette Davidson MD [Physician] - 1-3 days Kristen Muir DO [Primary Care Provider] - Discharge Diet: Advance as tolerated Discharge Activity: Increase activity as tolerated Patient Instructions: Rotator Cuff Injury (ED), Contusion in Adults (ED) Activity Restrictions/Additional Instructions: Please return to the ER immediately for any of the signs or symptoms listed on your discharge instruction sheets, worsening/changing of your symptoms, you are not getting better as quickly as expected, or for ANY other cause or concerns. Discharge Date/Time: 10/20/19 20:02 Coding Level of Care Code ED Rehab Consultant for [facility] Fwd Exam Comprehensive
[2019-10-20 20:01] VITALS: BP 122/80; PULSE 99; RESP 18; O2SAT 99
== END 2019-10-20 20:02 | disposition home or self-care (01) ==
PROVIDERS: Emergency Provider Emergency Medicine; PCP Family Medicine
DX: S30.0XXA Contusion of lower back and pelvis, initial encounter (principal); S46.912A Strain of unspecified muscle, fascia and tendon at shoulder and upper arm level, left arm, initial encounter; W01.0XXA Fall on same level from slipping, tripping and stumbling without subsequent striking against object, initial encounter; E78.5 Hyperlipidemia, unspecified
CPT/HCPCS: 12345; 72100; 72125; 72128; 73030; 99281; 99283

== ENCOUNTER → 2019-10-24 10:05 | Outpatient (BNVA) | payer SELFPAY | PROVIDERS: PCP Family Medicine; Visit Provider Family Medicine | DX: F41.8 Other specified anxiety disorders (principal); J30.2 Other seasonal allergic rhinitis; M54.42 Lumbago with sciatica, left side; E78.2 Mixed hyperlipidemia | CPT/HCPCS: 80053; 80061 ==

== ENCOUNTER 2019-11-06 14:47 | Outpatient (CLI) | payer SELFPAY ==
--- NOTE | 2019-11-06 14:54 | MR_ITS ---
WS: [id number] MRI LUMBAR SPINE NONCONTRAST HISTORY: M54.42 Lumbago with sciatica, left side, COMPARISON: 01/13/2018 TECHNIQUE: Sagittal and axial multisequence imaging is submitted. Normal lumbar alignment. Very minimal disc desiccation at L1-2. S1 is partially lumbarized. No marrow edema or fracture. Conus terminates normally at L1-2 disc level. L1-L2: Normal. L2-L3: Normal. L3-L4: Normal. L4-L5: Normal. L5-S1: Mild facet arthritis. Very minimal disc bulging posteriorly. No encroachment upon the foramen or central canal. Rudimentary S1-S2 disc. Paraspinal soft tissues are negative. MR/MR lumbar spine wo con* [id number] IMPRESSION: 1. No significant central or foraminal stenosis. 2. No disc protrusions. 3. Similar MRI to 01/13/2018.
== END 2019-11-06 14:48 | disposition home or self-care (01) ==
LOC: RADWPI 14:52
PROVIDERS: PCP Family Medicine; Visit Provider Family Medicine
DX: M54.42 Lumbago with sciatica, left side (principal)
CPT/HCPCS: 72148

== ENCOUNTER → 2019-11-08 09:48 | Outpatient (BNVA) | payer OTHER, SELFPAY | PROVIDERS: PCP Family Medicine; Referring Provider Family Medicine; Visit Provider Anesthesiology Pain Medicine | DX: M54.16 Radiculopathy, lumbar region (principal); M47.816 Spondylosis without myelopathy or radiculopathy, lumbar region; Z79.891 Long term (current) use of opiate analgesic | CPT/HCPCS: 99204 ==

== ENCOUNTER → 2019-11-24 12:24 | Outpatient (BNVA) | payer OTHER, SELFPAY | PROVIDERS: PCP Family Medicine; Visit Provider Anesthesiology Pain Medicine | DX: M47.816 Spondylosis without myelopathy or radiculopathy, lumbar region (principal); M54.9 Dorsalgia, unspecified | CPT/HCPCS: 64493; 64494; 64495; J2001; J3490 ==

== ENCOUNTER → 2019-12-07 09:10 | Outpatient (BNVA) | payer OTHER, SELFPAY | PROVIDERS: PCP Family Medicine; Visit Provider Anesthesiology Pain Medicine | DX: M54.9 Dorsalgia, unspecified (principal); M47.816 Spondylosis without myelopathy or radiculopathy, lumbar region; M54.16 Radiculopathy, lumbar region | CPT/HCPCS: 99212; 99213 ==

== ENCOUNTER → 2020-01-24 10:27 | Outpatient (BNVA) | payer OTHER, SELFPAY | PROVIDERS: PCP Family Medicine; Visit Provider Family Medicine | DX: R73.9 Hyperglycemia, unspecified (principal) | CPT/HCPCS: 83036 ==

== ENCOUNTER → 2020-02-27 09:52 | Outpatient (BNVA) | payer OTHER, SELFPAY | PROVIDERS: PCP Family Medicine; Visit Provider Specialist | DX: F44.5 Conversion disorder with seizures or convulsions (principal); G43.711 Chronic migraine without aura, intractable, with status migrainosus | CPT/HCPCS: 99214 ==

== ENCOUNTER → 2020-03-15 11:25 | Outpatient (BNVA) | payer OTHER, SELFPAY | PROVIDERS: PCP Family Medicine; Visit Provider Anesthesiology Pain Medicine | DX: M47.816 Spondylosis without myelopathy or radiculopathy, lumbar region (principal); M54.9 Dorsalgia, unspecified | CPT/HCPCS: 64635; 64636; 80053; J1030 ==

== ENCOUNTER → 2020-03-29 13:01 | Outpatient (BNVA) | payer OTHER, SELFPAY | PROVIDERS: PCP Family Medicine; Visit Provider Anesthesiology Pain Medicine | DX: M47.816 Spondylosis without myelopathy or radiculopathy, lumbar region (principal); M54.16 Radiculopathy, lumbar region; M54.9 Dorsalgia, unspecified | CPT/HCPCS: 64635; 64636; J1030 ==

== ENCOUNTER → 2020-04-12 09:30 | Outpatient (BNVA) | payer OTHER, SELFPAY | PROVIDERS: PCP Family Medicine; Visit Provider Anesthesiology Pain Medicine | DX: M47.816 Spondylosis without myelopathy or radiculopathy, lumbar region (principal); M54.16 Radiculopathy, lumbar region; M54.9 Dorsalgia, unspecified | CPT/HCPCS: 99212 ==

== ENCOUNTER 2020-04-19 12:07 | Emergency (ER) | payer OTHER, BC, SELFPAY ==
[2020-04-19 12:31] VITALS: BP 113/75; PULSE 78; RESP 16; TEMP 37.2; O2SAT 99; BMI 41.1
[2020-04-19 13:24] LABS: HCG Qualitative Urine. Negative (Negative)
--- NOTE | 2020-04-19 13:27 | XR_ITS ---
WS: [id number] Portable AP upright chest, 04/19/2020 Clinical Data: sob Comparison: Portable chest, 07/18/2019. Findings: No nodules, masses or effusions are seen. The heart is normal. The pulmonary vascularity is not increased. No pneumonia or pneumothorax is seen. XR/XR chest 1V portable [id number] Impression: Negative chest.
[2020-04-19 13:45] LABS: Basophils # 0.1 10^3/uL (0.0-0.1); Basophils % 0.5 %; Eosinophils # 0.2 10^3/uL (0.0-0.8); Eosinophils % 2.6 %; Hematocrit 40.5 % (37.0-47.0); Hemoglobin 12.4 g/dL (11.5-15.3); Lymphocytes # 3.1 10^3/uL (0.8-4.8); Lymphocytes % 32.8 %; Mean Corpuscular HGB Conc 30.6 g/dL (30.0-36.0); Mean Corpuscular Hemoglobin 26.2 pg (28.0-34.0); Mean Corpuscular Volume 85.6 fL (81-99); Mean Platelet Volume 10.5 fL (7.4-10.4); Monocytes # 0.5 10^3/uL (0.2-0.9); Monocytes % 5.7 %; Neutrophils # 5.42 10^3/uL (1.8-7.7); Neutrophils % 58.2 %; Nucleated Red Blood Cells % 0 %; Platelet Count 257 10^3/cmm (130-400); Red Blood Count 4.73 10^6/uL (4.1-5.3); Red Cell Distribution Width 15.9 % (12.1-15.1); White Blood Count 9.3 10^3/uL (4.0-10.0)
[2020-04-19 14:00] LABS: Alanine Aminotransferase 30 U/L (0-33); Albumin Level 4.4 g/dL (3.5-5.2); Alkaline Phosphatase 58 IU/L (35-105); Anion Gap 14.9 (5-19); Aspartate Amino Transferase 19 U/L (0-32); Blood Urea Nitrogen 16 mg/dL (6-20); Calcium 9.1 mg/dL (8.5-10.5); Carbon Dioxide 21 mmol/L (22-29); Chloride 109 mmol/L (98-107); Globulin 3.1 g/dL (1.3-4.6); Glucose 110 mg/dL (65-115); Osmolality Calculated 294 mOsm/kg (285-295); Potassium 3.9 mmol/L (3.5-5.1); Sodium 141 mmol/L (136-145); Total Bilirubin 0.2 mg/dL (0.15-1.2); Total Protein 7.5 g/dL (6.6-8.7)
[2020-04-19 14:01] LABS: Alcohol Level < 10 mg/dL (0-10)
[2020-04-19 14:23] LABS: Add Urine Microscopic? NO
[2020-04-19 14:26] LABS: Bilirubin Urine Neg (Negative); Blood Urine Neg (Negative); Glucose Urine UA Norm (Normal); Ketones Urine Negative (Negative); Leukocyte Esterase Urine Negative (Negative); Nitrate Urine Negative (Negative); Protein Urine Neg (Negative); Specific Gravity, Urine 1.015 (1.005-1.030); Urine Appearance Clear (CLEAR); Urine Color Yellow (Yellow); Urobilinogen Urine Norm (Negative); pH Urine 6 (5-7)
[2020-04-19 14:33] LABS: Amphetamines Screen Urine Negative (Negative); Barbiturates Screen Urine Negative (Negative); Benzodiazepines Screen Urine Negative (Negative); Cocaine Screen Urine Negative (Negative); Opiate Screen Urine Negative (Negative); PCP Screen Urine Negative (Negative); THC Screen Urine Negative (Negative)
--- NOTE | 2020-04-19 15:41 | ED_ITS ---
HPI - Seizure General: Chief Complaint: Seizure Stated Complaint: chest pain, seizures Time Seen by Provider: 04/19/20 12:51 Source: patient Mode of arrival: ambulatory Limitations: no limitations History of Present Illness: HPI Narrative: Pt states she had multiple sezures over the last few weeks and had a few today. Pt states she had one while in the waiting room. Pt denies any recent illness put states she was possibly exposed to Covid. Pt denies any headache, fever, states she has body aches but no other complaints. Pt states she has an appointment with her Neurologist next week. complaint: seizure Onset (ago): month(s) -: second(s) Witnessed: No Trauma: No Seizure History: Yes (7 years) [address]: Home [facility] Precipitating Event: lack of sleep and stress Associated symptoms: Reports cough and malaise; Deny chest pain, chills, confusion, diaphoresis, fever(s), anorexia, rash, short of breath, syncope, weakness or other Treatments prior to arrival: none Review of Systems Const: Reports: malaise; Denies: fever(s), chills or diaphoresis Eyes: Denies: change in vision, blurry vision, blind spots or photophobia ENMT: Denies: throat pain, odynophagia or dental pain Card: Denies: chest pain, palpitations, lightheadedness or syncope Resp: Reports: non-productive cough; Denies: dyspnea, wheezing, stridor or pain on inspiration GI: Denies: abdominal pain, nausea, vomiting or constipation : Denies: flank pain, difficulty voiding, dysuria, urinary frequency or urinary urgency Musc: Reports: other (generalized body aches) Skin/Breast: Denies: rash Neuro: Denies: confusion Psych: Denies: suicidal ideation or homicidal ideation PFSH ED PFSH: Medical History Attention deficit disorder DDD (degenerative disc disease), lumbar Depression with anxiety Fibromyalgia History of petit-mal seizures Hx of supraventricular tachycardia Hyperlipidemia Paroxysmal supraventricular tachycardia Surgical History Hx laparoscopic cholecystectomy Hx of ovarian cystectomy Hx of shoulder surgery Family History Father CAD (coronary artery disease) Hyperlipidemia Grandfather CAD (coronary artery disease) Grandmother CAD (coronary artery disease) Dementia Diabetes Mother Chronic kidney disease (CKD) Dementia Hypertension Stroke Denies family history of Clotting disorder Psychiatric illness Suicide Anesthesia complication Bleeding disorder Family history of premature coronary artery disease Lung disease Cancer Social History Smoking and tobacco status: never smoked Alcohol intake: never Lives independently: Yes Household members: significant other Housing: House History of recent travel: No Female Reproductive History: Date of last menstrual period: 06/27/19 Physical Exam Const: COMMON NORMALS: no acute distress, average body habitus, patient oriented x3, no limitations and alert EXAM LIMITATIONS: no altered mental status ORIENTATION/CONSCIOUSNESS: Yes oriented to person, Yes oriented to place and Yes oriented to time HENMT: COMMON NORMALS: normocephalic, atraumatic, hearing grossly normal bilaterally and Normal external nose present HEAD & SCALP: normocephalic and atraumatic FACE & SINUS: normal facial exam NOSE: Normal external nose present MOUTH: Normal oral and palatal mucosa present Eye: COMMON NORMALS: Equal, round and reactive pupils present, EOMs intact bilaterally and conjunctivae normal CONJUNCTIVA: Yes conjunctivae normal PUPIL: Yes Equal, round and reactive pupils present Neck/C-Spine: COMMON NORMALS: no meningeal signs and no JVD Chest: COMMONS NORMALS: normal inspection of the chest and normal palpation of entire chest wall Resp: COMMON NORMALS: normal respiratory effort, No retractions, No use of accessory muscles and clear to auscultation bilaterally AUSCULTATION: clear to auscultation bilaterally Cardio: COMMON NORMALS: no JVD, regular rate and regular rhythm RATE: regular rate RHYTHM: regular rhythm GI: COMMON NORMALS: Normal to inspection, nondistended, normoactive bowel sounds present, Soft to palpation, non-tender, No hepatosplenomegaly present, no masses and no bruits PALPATION: Yes Soft to palpation and Yes No hepatosplenomegaly present : COMMON NORMALS: Yes no CVA tenderness BLADDER/KIDNEY EXAM: Yes no CVA tenderness and No CVA tenderness Back/Pelvis: COMMON NORMALS: no CVA tenderness, thoracic and lumbar spine normal to inspection, no thoracic nor lumbar tenderness and thoraco-lumbar ROM normal GENERAL BACK: No CVA tenderness THORACIC SPINE/UPPER BACK: Yes no rmal to inspection LUMBAR SPINE/LOWER BACK: Yes normal to inspection PELVIS: Yes buttocks normal Extremity: COMMON NORMALS: normal to inspection, full ROM and capillary refill normal Neuro: COMMON NORMALS: patient oriented x3, CN's II-XII intact bilaterally, moves all extremities, no focal motor deficits, no sensory deficits noted, deep tendon reflexes 2+ bilaterally and gait normal SENSORIUM/ORIENTATION: Yes alert, Yes oriented to person, Yes oriented to place and Yes oriented to time MENINGEAL SIGNS: Yes no meningeal signs, No nuccal rigidity, No Brudzinski's sign present and No Kernig's sign presnet Course Vital Signs: Vital signs: Vital Signs Temperature 98.9 F 04/19/20 12:31 Pulse Rate 78 04/19/20 12:31 Respiratory Rate 16 04/19/20 12:31 Blood Pressure 113/75 04/19/20 12:31 Pulse Oximetry 99 04/19/20 12:31 MDM - Seizure MDM Narrative: Medical decision making narrative: Pt is well appearing non toxic and in no acute distress. Lab Data: Labs: Lab Results 04/19/20 04/19/20 04/19/20 Range/Units 13:15 13:15 13:15 WBC (4.0-10.0) 10^3/ uL RBC (4.1-5.3) 10^6/u L Hgb (11.5-15.3) g/dL Hct (37.0-47.0) % MCV (81-99) fL MCH (28.0-34.0) pg MCHC (30.0-36.0) g/dL RDW (12.1-15.1) % Plt Count (130-400) 10^3/c mm MPV (7.4-10.4) fL Neut % (Auto) % Lymph % (Auto) % Marin % (Auto) % Eos % (Auto) % Baso % (Auto) % Neut # (Auto) (1.8-7.7) 10^3/u L Lymph # (Auto) (0.8-4.8) 10^3/u L Marin # (Auto) (0.2-0.9) 10^3/u L Eos # (Auto) (0.0-0.8) 10^3/u L Baso # (Auto) (0.0-0.1) 10^3/u L Nucleated RBC % (a uto) % Nucleated RBCs # /100WBC Sodium (136-145) mmol/L Potassium (3.5-5.1) mmol/L Chloride (98-107) mmol/L Carbon Dioxide (22-29) mmol/L Anion Gap (5-19) BUN (6-20) mg/dL Creatinine (0.5-0.9) mg/dL GFR Calculation (90-130) mL/min Glucose (65-115) mg/dL Calculated Osmolal ity (285-295) mOsm/k g Calcium (8.5-10.5) mg/dL Total Bilirubin (0.15-1.2) mg/dL AST (0-32) U/L ALT (0-33) U/L Alkaline Phosphata se (35-105) IU/L Total Protein (6.6-8.7) g/dL Albumin (3.5-5.2) g/dL Globulin (1.3-4.6) g/dL HCG, Qual Negative (Negative) Urine Color Yellow (Yellow) Urine Appearance Clear (CLEAR) Urine pH 6 (5-7) Ur Specific Gravit y 1.015 (1.005-1.030) Urine Protein Neg (Negative) Urine Glucose (UA) Norm (Normal) Urine Ketones Negative (Negative) Urine Blood Neg (Negative) Urine Nitrate Negative (Negative) Urine Bilirubin Neg (Negative) Urine Urobilinogen Norm (Negative) mg/dL Ur Leukocyte Loretta ase Negative (Negative) Urine Opiates Scre en Negative (Negative) ng/mL Ur Barbiturates Sc reen Negative (Negative) ng/mL Ur Phencyclidine S crn Negative (Negative) ng/mL Ur Amphetamines Sc reen Negative (Negative) ng/mL U Benzodiazepines Scrn Negative (Negative) ng/mL Urine Cocaine Scre en Negative (Negative) ng/mL U Marijuana (THC) Screen Negative (Negative) ng/mL Ethyl Alcohol (0-10) mg/dL 04/19/20 04/19/20 Range/Units 13:25 13:25 WBC 9.3 (4.0-10.0) 10^3/ uL RBC 4.73 (4.1-5.3) 10^6/u L Hgb 12.4 (11.5-15.3) g/dL Hct 40.5 (37.0-47.0) % MCV 85.6 (81-99) fL MCH 26.2 L (28.0-34.0) pg MCHC 30.6 (30.0-36.0) g/dL RDW 15.9 H (12.1-15.1) % Plt Count 257 (130-400) 10^3/c mm MPV 10.5 H (7.4-10.4) fL Neut % (Auto) 58.2 % Lymph % (Auto) 32.8 % Marin % (Auto) 5.7 % Eos % (Auto) 2.6 % Baso % (Auto) 0.5 % Neut # (Auto) 5.42 (1.8-7.7) 10^3/u L Lymph # (Auto) 3.1 (0.8-4.8) 10^3/u L Marin # (Auto) 0.5 (0.2-0.9) 10^3/u L Eos # (Auto) 0.2 (0.0-0.8) 10^3/u L Baso # (Auto) 0.1 (0.0-0.1) 10^3/u L Nucleated RBC % (a uto) 0 % Nucleated RBCs # 0.0 /100WBC Sodium 141 (136-145) mmol/L Potassium 3.9 (3.5-5.1) mmol/L Chloride 109 H (98-107) mmol/L Carbon Dioxide 21 L (22-29) mmol/L Anion Gap 14.9 (5-19) BUN 16 (6-20) mg/dL Creatinine 0.9 (0.5-0.9) mg/dL GFR Calculation 69.0 L (90-130) mL/min Glucose 110 (65-115) mg/dL Calculated Osmolal ity 294 (285-295) mOsm/k g Calcium 9.1 (8.5-10.5) mg/dL Total Bilirubin 0.2 (0.15-1.2) mg/dL AST 19 (0-32) U/L ALT 30 (0-33) U/L Alkaline Phosphata se 58 (35-105) IU/L Total Protein 7.5 (6.6-8.7) g/dL Albumin 4.4 (3.5-5.2) g/dL Globulin 3.1 (1.3-4.6) g/dL HCG, Qual (Negative) Urine Color (Yellow) Urine Appearance (CLEAR) Urine pH (5-7) Ur Specific Gravit y (1.005-1.030) Urine Protein (Negative) Urine Glucose (UA) (Normal) Urine Ketones (Negative) Urine Blood (Negative) Urine Nitrate (Negative) Urine Bilirubin (Negative) Urine Urobilinogen (Negative) mg/dL Ur Leukocyte Loretta ase (Negative) Urine Opiates Scre en (Negative) ng/mL Ur Barbiturates Sc reen (Negative) ng/mL Ur Phencyclidine S crn (Negative) ng/mL Ur Amphetamines Sc reen (Negative) ng/mL U Benzodiazepines Scrn (Negative) ng/mL Urine Cocaine Scre en (Negative) ng/mL U Marijuana (THC) Screen (Negative) ng/mL Ethyl Alcohol < 10 (0-10) mg/dL Discharge Plan Discharge Patient Disposition: Home Clinical Impression: Functional neurological symptom disorder with attacks or seizures Condition: Stable Prescriptions: No Action metoprolol succinate 25 mg capsule,sprinkle,ER 24hr 12.5 mg PO BID Qty: 90 RF: 3 Topamax 100 mg tablet 150 mg PO BID Qty: 90 RF: 5 pantoprazole [Protonix] 40 mg tablet,delayed release (DR/EC) 40 mg PO DAILY Qty: 30 RF: 2 escitalopram oxalate 20 mg tablet 20 mg PO DAILY Qty: 30 RF: 2 Aimovig Autoinjector 140 mg/mL auto-injector 140 mg SUBCUT .monthly Qty: 1 RF: 5 Abilify 2 mg tablet 2 mg PO DAILY 30 Days Qty: 30 RF: 5 tizanidine 4 mg tablet 4 mg PO BID PRN (Reason: muscle spasticity) Qty: 60 RF: 1 montelukast [Singulair] 10 mg tablet 10 mg PO DAILY Qty: 30 RF: 5 simvastatin 20 mg tablet 20 mg PO DAILY Qty: 30 RF: 5 metformin 500 mg tablet 500 mg PO DAILY Qty: 30 RF: 5 cranberry 400 mg Capsule 400 mg PO DAILY RF: 0 omega 4-nha-zwa-fish oil [Fish Oil] 1,000 mg (120 mg-180 mg) Capsule 1 cap PO DAILY RF: 0 Vitamin D3 4,000 unit Capsule 5,000 unit PO DAILY RF: 0 ibuprofen 200 mg Tablet 600 mg PO PRN RF: 0 Discharge Orders: Discharge Order (Routine); Ordered 04/19/20 Ordered By: Meaghan Martinez Referrals: Kristen Muir DO [Primary Care Provider] - Discharge Diet: Advance as tolerated Discharge Activity: Resume usual activity Activity Restrictions/Additional Instructions: Please return to ER with any worsening symptoms Please keep your appointment with Neurologist as scheduled next week Coding Level of Care Code ED Board Hammer Operator for Chg Fwd Exam Comprehensive
[2020-04-19 16:20] VITALS: BP 138/79; PULSE 72; RESP 18; O2SAT 96
[2020-04-21 13:59] LABS: Quest SARS-CoV-2 RNA NOT DETECTED (NOT DETECTED)
--- NOTE | 2020-04-21 16:19 | PC.NURSE ---
Pt called and notified of negative COVID result.
== END 2020-04-19 15:55 | disposition home or self-care (01) ==
PROVIDERS: Emergency Provider Registered Nurse; PCP Family Medicine
DX: R29.818 Other symptoms and signs involving the nervous system (principal); E78.5 Hyperlipidemia, unspecified
CPT/HCPCS: 12345; 71045; 80053; 80306; 80307; 81003; 81025; 85025; 87635; 99283

== ENCOUNTER → 2020-04-22 13:33 | Outpatient (BNVA) | payer OTHER, BC, SELFPAY | PROVIDERS: PCP Family Medicine; Visit Provider Specialist | DX: F44.5 Conversion disorder with seizures or convulsions (principal); G43.711 Chronic migraine without aura, intractable, with status migrainosus | CPT/HCPCS: 99214 ==

== ENCOUNTER → 2020-05-28 10:36 | Outpatient (BNVA) | payer OTHER, BC, SELFPAY | PROVIDERS: PCP Family Medicine; Visit Provider Anesthesiology Pain Medicine | DX: M47.816 Spondylosis without myelopathy or radiculopathy, lumbar region (principal); M54.9 Dorsalgia, unspecified; M54.16 Radiculopathy, lumbar region | CPT/HCPCS: 99214 ==

== ENCOUNTER → 2020-06-03 13:41 | Outpatient (BNVA) | payer OTHER, BC, SELFPAY | PROVIDERS: Visit Provider Anesthesiology Pain Medicine | DX: M54.16 Radiculopathy, lumbar region (principal); M54.9 Dorsalgia, unspecified | CPT/HCPCS: 64483; 64484; J1100; J3490 ==

== ENCOUNTER → 2020-08-01 09:29 | Outpatient (BNVA) | payer BC, SELFPAY | PROVIDERS: Visit Provider Anesthesiology Pain Medicine | DX: M51.17 Intervertebral disc disorders with radiculopathy, lumbosacral region (principal); M47.816 Spondylosis without myelopathy or radiculopathy, lumbar region; M47.812 Spondylosis without myelopathy or radiculopathy, cervical region; M54.9 Dorsalgia, unspecified | CPT/HCPCS: 99214 ==

== ENCOUNTER 2020-08-01 11:09 | Outpatient (CLI) | payer BC, SELFPAY ==
--- NOTE | 2020-08-01 11:24 | XR_ITS ---
WS: [id number] CERVICAL SPINE 7 VIEWS HISTORY: M47.812 - Spondylosis without myelopathy or radiculopathy, cervical region COMPARISON: None available. TECHNIQUE: AP, oblique and lateral views. Lateral views in neutral, flexion and extension. Very slight RIGHT curvature cervical spine. Posterior alignment is normal. Lateral masses are aligned . Odontoid is intact. No foraminal stenosis. No fractures. No instability. XR/XR cervical spine min 6V [id number] IMPRESSION: Negative cervical spine radiographs. No cervical instability.
== END 2020-08-01 11:10 | disposition home or self-care (01) ==
PROVIDERS: Visit Provider Anesthesiology Pain Medicine
DX: M47.812 Spondylosis without myelopathy or radiculopathy, cervical region (principal)
CPT/HCPCS: 72052

== ENCOUNTER → 2020-08-29 13:14 | Outpatient (BNVA) | payer BC, SELFPAY | PROVIDERS: Visit Provider Anesthesiology Pain Medicine | DX: M54.16 Radiculopathy, lumbar region (principal); M47.816 Spondylosis without myelopathy or radiculopathy, lumbar region; M54.9 Dorsalgia, unspecified; M47.812 Spondylosis without myelopathy or radiculopathy, cervical region | CPT/HCPCS: 99214 ==

== ENCOUNTER → 2020-10-09 14:37 | Outpatient (BNVA) | payer BC, SELFPAY | PROVIDERS: Visit Provider Anesthesiology Pain Medicine | DX: M54.9 Dorsalgia, unspecified (principal); M47.816 Spondylosis without myelopathy or radiculopathy, lumbar region; M54.16 Radiculopathy, lumbar region; M47.812 Spondylosis without myelopathy or radiculopathy, cervical region | CPT/HCPCS: 99213 ==

== ENCOUNTER → 2021-01-01 15:01 | Outpatient (BNVA) | payer BC, SELFPAY | PROVIDERS: Visit Provider Anesthesiology Pain Medicine | DX: G89.29 Other chronic pain (principal); M47.816 Spondylosis without myelopathy or radiculopathy, lumbar region; M54.16 Radiculopathy, lumbar region; M47.812 Spondylosis without myelopathy or radiculopathy, cervical region; M79.605 Pain in left leg | CPT/HCPCS: 99214 ==